=== PATIENT | male | born 1965 | race Native Hawaiian/Other Pacific Islander ===

== ENCOUNTER 2022-11-21 15:35 | Outpatient (CLI) | payer OTHER | END 2022-11-21 19:16 | disposition home or self-care (01) | LOC: RAD 15:35 | PROVIDERS: ATTEND Physician Assistant | DX: M54.59 Other low back pain (principal); M54.2 Cervicalgia ==

== ENCOUNTER 2022-12-01 09:33 | Outpatient (CLI) | payer OTHER | END 2022-12-01 19:15 | disposition home or self-care (01) | LOC: MRI 09:33 | PROVIDERS: ATTEND Physician Assistant | DX: M54.59 Other low back pain (principal); M54.2 Cervicalgia ==

== ENCOUNTER 2023-03-03 14:26 | Emergency (ER) | payer OTHER ==
[~2023-03-03] VITALS: Ht 175.3 cm; Wt 93.0 kg
[2023-03-03 14:30] VITALS: BP 123/67; TEMP 98.4
== END 2023-03-03 15:03 | disposition home or self-care (01) ==
LOC: ED 14:26
DX: S30.820A Blister (nonthermal) of lower back and pelvis, initial encounter (principal)
CPT/HCPCS: 99282

== ENCOUNTER 2023-05-22 12:24 | Outpatient (CLI) | payer OTHER | END 2023-05-22 18:55 | disposition home or self-care (01) | LOC: MRI 12:24 | PROVIDERS: ATTEND Physician Assistant | DX: M50.30 Other cervical disc degeneration, unspecified cervical region (principal) ==